=== PATIENT | male | born 1990 | race Caucasian/White ===

== ENCOUNTER → 2024-10-09 | Outpatient (CLI) | payer OTHER ==
[2024-10-09 14:49] VITALS: BP 148/99; PULSE 100; RESP 18; TEMP 97.8
--- NOTE | 2024-10-09 15:18 | P.SLEEP ---
History of Present Illness DATE: 10/09/2024 CONSULTATION/NEW PATIENT EVALUATION HISTORY OF PRESENT ILLNESS/SLEEP-WAKE EVALUATION: 34-year-old gentleman had been evaluated in the sleep center for possible obstructive sleep apnea hypopnea syndrome. SLEEP SCHEDULE: Usually sleep schedule from 9 PM to 5:15 AM on working days and from 11 PM to 78 AM on weekend. FALLING ASLEEP: No problems with falling asleep. DURING SLEEP: Patient denies snoring, may wake up from sleep several times with 1 episode of nocturia. No history of hypnogogical hallucinations, sleep paralysis, or cataplexy. DURING THE DAY/WAKE STATE: Patient denies sleepiness. Truxton sleepiness scale is 1. Patient does not take naps. PAST MEDICAL HISTORY: Kidney stones. PAST SURGICAL HISTORY: Lithotripsy, right shoulder surgery. MEDICATIONS: None. SOCIAL HISTORY: Please see belowl. FAMILY HISTORY: Please see below. REVIEW OF SYSTEMS: Awakenings from sleep. No fevers. No double vision. No recent chest pain. No shortness of breath. No abdominal pain. No bleeding episodes. No blood in urine. No seizure episodes. PHYSICAL EXAMINATION: GENERAL: A pleasant patient without any distress. VITAL SIGNS: Please see below, weight 285.6 pounds, BMI 41.4. HEENT: PERRLA, EOMI. Evaluation of oropharynx showed tongue protrudes midline, low position of soft palate Mallampati 34. NECK: Supple. No JVD. Thyroid is not palpable. 17.5 inches in circumference. LUNGS: Clear to percussion and to auscultation. Good air exchange. No wheezing or rhonchi. HEART: S1, S2 regular. No murmurs, gallops or rubs. ABDOMEN: Soft and nontender. Bowel sounds are present. No organomegaly appreciated. EXTREMITIES: No clubbing or cyanosis. LEAD SECURITY OFFICER: Awake, alert, and oriented x3. Cranial nerves 2 to 7 intact. There is no fasciculation or atrophy noted. No focal deficits observed. ASSESSMENT: 1. Awakenings from sleep, extremely low position of soft palate Mallampati 34, wide neck 17.5 inches in circumference. Obstructive sleep apnea hypopnea syndrome. 2. Obesity, BMI 41.4. 3. Hypertension in the office, BP 148/99 with pulse rate 100. 4. xm1 tank driver. PLAN: 1. Polysomnography for evaluation of patient's breathing during sleep. 2. Following plan after reading sleep study. 3. Preferable position during sleep on the side. 4. No driving if patient feels any sleepiness. Patient is aware of civil and criminal liability for unsafe driving. 5. Sleep hygiene with regular sleep time for at least 7.5-8 hours. 6. Watching and losing weight. Thank you very much for referring this patient for consultation. Sincerely, Oleg Briones MD, PhD, FAASM. Diplomat of [place] [employer], Sleep Medicine Board by [place] Wound Nurse of [facility] [place] cc: Jose Dinh MD Past Medical History Past Medical History: Asthma Additional Past Medical History / Comment(s): kidney stones, migraines History of Any Multi-Drug Resistant Organisms: None Reported Past Surgical History: Orthopedic Surgery Additional Past Surgical History / Comment(s): rt shoulder arthroscopy, LITHOTRIPSY Past Anesthesia/Blood Transfusion Reactions: No Reported Reaction Past Psychological History: No Psychological Hx Reported Smoking Status: Never smoker Past Alcohol Use History: None Reported Past Drug Use History: None Reported - Past Family History Mother Family Medical History: No Reported History Father Family Medical History: Diabetes Mellitus Medications and Allergies Home Medications Medication Instructions Recorded Confirmed Type Colchicine [Colcrys] 0.6 mg PO Q12HR PRN 05/22/15 07/27/15 History Tamsulosin [Flomax] 0.4 mg PO DAILY 05/22/15 07/27/15 History allopurinoL [Zyloprim] 300 mg PO DAILY 05/22/15 07/27/15 History Hydrocodone/Acetaminophen [Conrath 1 - 2 each PO Q6HR PRN #15 tab 05/25/15 07/27/15 Rx 5-325] Albuterol Sulfate [Proair Hfa] 2 puff INHALATION DIRECTED PRN 07/24/15 07/27/15 History Hydrocodone/Acetaminophen [Conrath 1 - 2 each PO Q4HR PRN #20 tab 07/27/15 Rx 5-325] Allergies Allergy/AdvReac Type Severity Reaction Status Date / Time No Known Allergies Allergy Verified 07/27/15 07:58 Physical Exam Vitals: Vital Signs Temp Pulse Resp BP Pulse Ox 10/09/24 14:47 97.8 F 100 18 148/99 98 Intake and Output 10/09/24 10/09/24 10/09/24 06:59 14:59 22:59 Other: Weight 129.444 kg Sleep Note - Sleep Data ESS Total: 1 - Sleep Note Sleep Note: Temperature: 97.8 F Pulse Rate: 100 Respiratory Rate: 18 Blood Pressure: 148/99 SpO2: 98 Height: 5 ft 9.5 in Weight: 129.444 kg BMI: Neck Circumference: 17.5
== END ==
LOC: 3 N SLEEP 14:35
PROVIDERS: ATTEND Internal Medicine
DX: G47.33 Obstructive sleep apnea (adult) (pediatric) (principal); E66.9 Obesity, unspecified; I10 Essential (primary) hypertension; Z68.41 Body mass index [BMI] 40.0-44.9, adult
CPT/HCPCS: 99211

== ENCOUNTER 2024-10-16 19:43 | Outpatient (CLI) | payer OTHER ==
--- NOTE | 2024-10-17 10:49 | P.PCN ---
Description of Procedure: POLYSOMNOGRAPHY REPORT PROCEDURE(S)/DATE(S): Polysomnography 10/16/2024 CLINICAL: Patient has been seen in the sleep center for evaluation of obstructive sleep apnea-hypopnea syndrome. Please see my consultation. Sleep study has been done for evaluation of patient breathing during the sleep. PROCEDURE: The standard montage for clinical polysomnography included the electroencephalogram, the electrooculogram, the mentalis surface electromyography and Lead II cardiography. The respiratory battery consisted of measurements of nasal/buccal air flow, pressure transducer measurements from nose, thoracic and/or abdominal effort and intercostal surface electromyography. Video monitoring has been done to check for any parasomnia events. Nocturnal oxyhemoglobin saturations were obtained by finger oximetry. Step-pace titration with positive airway pressure was utilized to control the respiratory events, if necessary. RESULTS: During the diagnostic sleep study sleep efficiency was slightly decreased to 84.0%. Latency to sleep onset was normal at 13.0 min. Sleep architecture showed stage NI was short 1.4%, Delta sleep was normal at 15.2%, REM sleep was normal at 20.1%. Respiratory channel showed 0 obstructive apneas, 0 mixed apneas, 0 central apneas, 10 hypopneas with lowest oxygen level 86%, oxygen level was below or equal 88% for 0.5-minute. Total apnea hypopnea index was 1.7. Heart rate was in the range between 57 and 73, average 63. EMG showed 0 periodic limb movements per hour with 0 micro-arousals per hour. IMPRESSIONS: 1. No significant respiratory abnormalities have been documented during the sleep study. 2. No significant periodic limb movements have been documented. Please see other impressions from consultation PLAN: 1. Sleep hygiene with regular time in bed for at least 7-1/2 hours. 2. Losing weight program. 3. No driving if feeling sleepiness. Thank you very much for allowing me to participate in the management of your patient. Sincerely, Oleg Briones MD, PhD, FAASM. Diplomat of [place] [employer], Sleep Medicine Board by [employer] Child Support Investigator of [facility] [place] cc: Jose Dinh MD
== END 2024-10-17 05:40 | disposition home or self-care (01) ==
LOC: 3 N SLEEP 19:43
PROVIDERS: ATTEND Internal Medicine
DX: G47.33 Obstructive sleep apnea (adult) (pediatric) (principal)
CPT/HCPCS: 95810